=== PATIENT | male | born 1985 | race Caucasian/White ===

== ENCOUNTER 2017-05-31 14:03 | Emergency (ER) | payer OTHER ==
[2017-05-31] MEDS ORDERED: Rabies VIRUS VACCINE, HDCV* 2.5 UNIT/ML 1 ML IM ONE (14:57)
[2017-05-31] MEDS ORDERED: Rabies Immune Globulin 10 ML* 150 UNIT/ML VIAL IM ONE (15:02)
[2017-05-31 15:21] VITALS: BP 110/70
--- NOTE | 2017-05-31 15:25 | UC ---
General HPI - HPI Summary HPI Summary: FOUR DAYS AGO WOKE WITH BAT IN BEDROOM. NO KNOWN BITES. BAT LEFT ROOM, BUT WAS UNABLE TO BE LOCATED THE NEXT DAY, WITH LICENSED NURSE PRACTITIONER. CALLED HEALTH DEPARTMENT RECOMMENDED RABIES VACCINE - History of Current Complaint Chief Complaint: UCBiteInjury Stated Complaint: RABIES EXPOSURE Time Seen by Provider: 05/31/17 14:10 Hx Obtained From: Patient, Family/Graphics Artist Onset/Duration: Sudden Onset, Lasting Days Onset Severity: Mild Current Severity: None Associated Signs & Symptoms: Negative: Abdominal Pain, Back Pain, Cough, Dizziness, Diarrhea, Dysuria, Fever, Nausea, Syncope, SOB, Trauma, Wheezing, Weakness - Allergy/Home Medications Allergies/Adverse Reactions: Allergies Allergy/AdvReac Type Severity Reaction Status Date / Time Cefaclor [From [facility]] Allergy Rash Verified 05/31/17 14:12 Home Medications: Home Medications NK [No Home Medications Reported] 05/31/17 [History Confirmed 05/31/17] PMH/Surg Hx/FS Hx/Imm Hx Previously Healthy: Yes - Surgical History Surgical History: None - Family History Known Family History: Negative: Respiratory Disease - Social History Occupation: Employed Full-time Lives: With Family Alcohol Use: Occasionally Substance Use Type: None Smoking Status (MU): Never Smoked Tobacco - Immunization History Most Recent Tetanus Shot: unknown Review of Systems Constitutional: Negative Skin: Negative Eyes: Negative ENT: Negative Respiratory: Negative Cardiovascular: Negative Gastrointestinal: Negative Genitourinary: Negative Motor: Negative Neurovascular: Negative Musculoskeletal: Negative Neurological: Negative Psychological: Negative All Other Systems Reviewed And Are Negative: Yes Physical Exam Triage Information Reviewed: Yes Appearance: Well-Appearing, No Pain Distress, Well-Nourished Vital Signs: Initial Vital Signs Temp 98.1 F 05/31/17 14:08 Pulse 101 05/31/17 14:08 Resp 18 05/31/17 14:08 BP 112/72 05/31/17 14:08 Pulse Ox 100 05/31/17 14:08 Vital Signs Reviewed: Yes Eye Exam: Normal ENT Exam: Normal Dental Exam: Normal Neck exam: Normal Respiratory Exam: Normal Respiratory: Positive: Chest non-tender, Lungs clear, Normal breath sounds, No respiratory distress, No accessory muscle use Cardiovascular Exam: Normal Cardiovascular: Positive: RRR, No Murmur, Pulses Normal Abdominal Exam: Normal Abdomen Description: Positive: Nontender, No Organomegaly Musculoskeletal Exam: Normal Neurological Exam: Normal Psychological Exam: Normal Skin Exam: Normal Course/Dx - Differential Dx - Multi-Symptom Differential Diagnoses: Metabolic Abnormality Provider Diagnoses: POST EXPOSURE RABIES VACCINE Discharge - Discharge Plan Condition: Stable Disposition: HOME Patient Education Materials: Rabies Vaccine (ED) Referrals: [facility] [place] [facility] [Outside]
== END 2017-05-31 15:27 | disposition home or self-care (01) ==
LOC: UCEAST 14:03
DX: Z20.3 Contact with and (suspected) exposure to rabies (principal); Z23 Encounter for immunization
CPT/HCPCS: 90375; 90471; 90472; 96372; 99201; G0463